=== PATIENT | female | born 1995 | race Two or more races ===

== ENCOUNTER 2020-02-08 17:06 | Emergency (ER) | payer OTHER ==
[2020-02-08] MEDS ORDERED: DIPHENHYDRAMINE HCL 50 MG/ML VIAL IV ONE (17:29)
[2020-02-08] MEDS ORDERED: NORMAL SALINE 1000 ML 1,000 ML IV ONE (17:29)
--- NOTE | 2020-02-08 17:54 | ER Document Report ---
ED Allergic Reaction - General Chief Complaint: Allergic Reaction Stated Complaint: ALLERGIC RXN Time Seen by Provider: 02/08/20 17:22 Notes: HPI: 24-year-old female with past medical history as recorded including SVT x3 in the past who presents after she was bit by fire ants on her feet. 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 She states she started to get hives with some swelling of her face and hands. EMS provided Benadryl and Solu-Medrol. They did not provide epinephrine. Patient did have a run of tachycardia by EMS and the patient denies any chest pain or shortness of breath. She states that the swelling and the hives have greatly improved. She is currently on the monitor. She denies any cough, chest pain, difficulty breathing or swallowing ROS: See HPI All other review of systems reviewed and otherwise negative Reviewed vital signs and nursing note as charted by RN. PHYSICAL EXAM: CONSTITUTIONAL: Alert and oriented and responds appropriately to questions. Well-appearing; well-nourished HEAD: Normocephalic; atraumatic EYES: PERRL; very minimal periorbital swelling bilaterally with no fluctuance or erythema conjunctivae clear, sclerae non-icteric ENT: Normal nose; no rhinorrhea; no lip, tongue, posterior pharyngeal swelling NECK: Supple without meningismus; non-tender; no cervical lymphadenopathy, no masses CARD: Regular rate and rhythm; no murmurs; symmetric distal pulses RESP: Normal chest excursion without splinting or tachypnea; breath sounds clear and equal bilaterally; no wheezes, no rhonchi, no rales ABD/GI: Normal bowel sounds; non-distended; soft, non-tender to deep palpation of all 4 quadrants of the abdomen BACK: The back appears normal and is non-tender to palpation EXT: Normal ROM in all joints; non-tender to palpation; no edema SKIN: No acute lesions noted NEURO: CN 2-12 intact; 5/5 bilateral upper and lower extremity strength with sensation intact to light touch PSYCH: The patient's mood and manner are appropriate. Grooming and personal hygiene are appropriate. - Related Data Allergies/Adverse Reactions: amoxicillin Allergy (Verified 02/08/20 17:36) Past Medical History - Social History Smoking Status: Never Smoker Family History: Reviewed & Not Pertinent Physical Exam - Vital signs Vitals: Temp 98.7 F 02/08/20 17:24 Course - Re-evaluation Re-evalutation: 02/08/20 17:53 Given the above history and physical along with improving symptoms, with a heart rate currently of 110 that shows sinus rhythm on the monitor, with no chest pain or shortness of breath, no tongue or posterior pharyngeal swelling, no wheezing, abdominal pain, nausea or vomiting, we will hold on epinephrine at this time. I will re-dose the Benadryl. We will monitor the patient for short period of time. 02/08/20 19:08 Patient symptoms have greatly improved. Still no facial or tongue swelling, difficulty breathing or swallowing, wheezing, nausea, abdominal pain. We will discharge the patient on a course of steroids and provide an EpiPen as well. - Vital Signs Vital signs: Temp Pulse Resp BP Pulse Ox 98.7 F 13 130/74 H 100 02/08/20 17:24 02/08/20 19:01 02/08/20 19:01 02/08/20 19:01 Discharge - Discharge Clinical Impression: Acute allergic reaction Qualifiers: Encounter type: initial encounter Qualified Code(s): T78.40XA - Allergy, unspecified, initial encounter Condition: Good Disposition: HOME, SELF-CARE Additional Instructions: Come back immediately for any return of rash, difficulty breathing or swallowing, facial swelling, or any other acute problems. Please take the steroids daily for the next 2 days as discussed and the epinephrine pen only as needed. Prescriptions: Prednisone [Deltasone 20 mg Tablet] 3 tab PO DAILY 2 Days #6 tablet Epinephrine [Epipen] 0.3 mg IJ ASDIR PRN 1 Days #1 auto.injct PRN Reason:
[2020-02-08 19:06] VITALS: BP 130/74
== END 2020-02-08 19:34 | disposition home or self-care (01) ==
LOC: ER 17:06
DX: T63.421A Toxic effect of venom of ants, accidental (unintentional), initial encounter (principal); T78.40XA Allergy, unspecified, initial encounter; X58.XXXA Exposure to other specified factors, initial encounter
CPT/HCPCS: 99284; 96361; 96374; J1200; J7030